=== PATIENT | female | born 1950 | race Caucasian/White ===

== ENCOUNTER 2021-11-01 07:53 | Emergency (ER) | payer OTHER, MEDICAID ==
[~2021-11-01] VITALS: Ht 162.6 cm; Wt 83.9 kg
[2021-11-01 08:04] VITALS: BP 147/82
[2021-11-01 12:14] LABS: BASOPHILS # (AUTO) 0.1 K/uL (0.00-0.22); EOSINOPHILS # (AUTO) 0.3 K/uL (0-0.4); HEMATOCRIT 38.5 % (36-48); HEMOGLOBIN 13.1 g/dL (12.0-16.0); LYMPHOCYTES # (AUTO) 1.6 K/uL (2.5-16.5); LYMPHOCYTES % (AUTO) 28.3 % (20.5-51.1); MEAN CORPUSCULAR HEMOGLOBIN 30 pg (27-31); MEAN CORPUSCULAR HGB CONC 34 g/dL (33-37); MEAN CORPUSCULAR VOLUME 88.1 fL (80-94); MONOCYTES # (AUTO) 0.4 K/uL (0.8-1.0); MONOCYTES % (AUTO) 7.4 % (1.7-9.3); NEUTROPHILS # (AUTO) 3.3 K/uL (1.8-7.7); NEUTROPHILS % (AUTO) 58.3 % (42.2-75.2); PLATELET COUNT (AUTO) 267 K/uL (140-450); RED BLOOD CELL COUNT(AUTO) 4.37 MIL/uL (4.20-5.40); RED CELL DISTRIBUTION WIDTH 13.8 % (11.6-13.7); WHITE BLOOD COUNT (AUTO) 5.6 K/uL (4.8-10.8)
[2021-11-01 12:29] LABS: ALBUMIN 3.4 g/dL (3.4-5.0); ANION GAP 11.7 (8-16); ASPARTATE AMINOTRANSFERASE 21 U/L (15-37); CARBON DIOXIDE 25.1 mmol/L (21-32); CHLORIDE 109 mmol/L (98-107); CREATININE 0.9 mg/dL (0.6-1.3); GLUCOSE 119 mg/dL (74-106); POTASSIUM 3.8 mmol/L (3.5-5.1); SODIUM SERUM 142 mmol/L (136-145); TOTAL BILIRUBIN 0.3 mg/dL (0.0-1.0); UREA NITROGEN, BLOOD 17 mg/dL (7-18)
--- NOTE | 2021-11-01 13:29 | NUR ---
Patient does not wish to proceed with medical care recommended by DR. BRAXTON. Patient given information related to possible complications, up to and including , which could occur as a result of leaving hospital at this time. Patient verbalizes understanding of risks involved leaving against medical advice. Patient has signed AMA form.
[2021-11-01 13:45] VITALS: BP 136/74
== END 2021-11-01 13:29 | disposition left against medical advice (07) ==
LOC: MED 07:53
DX: R07.89 Other chest pain (principal); R20.0 Anesthesia of skin; R20.2 Paresthesia of skin; I10 Essential (primary) hypertension; Z90.49 Acquired absence of other specified parts of digestive tract; Z98.890 Other specified postprocedural states
CPT/HCPCS: 36415; 71045; 80053; 83880; 84484; 85025; 93005; 99285

== ENCOUNTER 2022-04-19 03:10 | Inpatient (IN) | payer OTHER, MEDICAID ==
[~2022-04-19] VITALS: Ht 162.6 cm; Wt 90.7 kg
[2022-04-19 03:10] VITALS: BP 150/80
--- NOTE | 2022-04-19 03:11 | NUR ---
PT HARINI ALS. TAKEN TO BED 3
--- NOTE | 2022-04-19 03:12 | NUR ---
Dr. Stauffer examining patient.
[2022-04-19] MEDS ORDERED: AZITHROMYCIN 500 MG in DEXTROSE 5% 250 ML IV ONE (03:45)
[2022-04-19] MEDS ORDERED: methylPREDNISolone SS 125 MG in WATER STERILE 2 ML IV ONE (03:45)
--- NOTE | 2022-04-19 03:51 | NUR ---
72 Y.O. F BIBA FROM HOME WITH C/O SOB, WHEEZING, AN HOUR AGO , SHE WAS GIVEN BREATHING TREATMENT ENROUTE, NO CHEST PAIN, NOW SAO2 99%. LUNGS SOUND HAVE EXPIRATORY WHEEZES IN UPPER LOBES. VITALS WNL, A&OX4, SKIN INTACT, WALKS WITH CANE/WALKER AT HOME, AND GI/ NORMAL. HX: ASTHMA, HTN
[2022-04-19] MEDS ORDERED: AZITHROMYCIN 500 MG INJ VIAL IV ONE (03:53)
[2022-04-19] MEDS ORDERED: ALBUTEROL SULFATE/IPRATROPIU 3 ML SOL IH PRN ×2 (04:30→08:15)
--- NOTE | 2022-04-19 04:31 | NUR ---
MEGA COLLECTED AND WALKED TO LAB
[2022-04-19] MEDS ORDERED: ALBUTEROL SULFATE/IPRATROPIU 3 ML SOL IH ONE (04:43)
[2022-04-19] MEDS ORDERED: ONDANSETRON 4 MG/2 ML VIAL IVP ONE (04:45)
[2022-04-19 04:47] LABS: BASOPHILS # (AUTO) 0.1 K/uL (0.00-0.22); EOSINOPHILS # (AUTO) 0.8 K/uL (0-0.4); EOSINOPHILS % (AUTO) 10.9 % (0.0-4.0); HEMATOCRIT 36.9 % (36-48); HEMOGLOBIN 12.7 g/dL (12.0-16.0); LYMPHOCYTES # (AUTO) 2.3 K/uL (2.5-16.5); LYMPHOCYTES % (AUTO) 30.8 % (20.5-51.1); MEAN CORPUSCULAR HEMOGLOBIN 30 pg (27-31); MEAN CORPUSCULAR HGB CONC 34 g/dL (33-37); MEAN CORPUSCULAR VOLUME 85.9 fL (80-94); MONOCYTES # (AUTO) 0.7 K/uL (0.8-1.0); MONOCYTES % (AUTO) 9.9 % (1.7-9.3); NEUTROPHILS # (AUTO) 3.5 K/uL (1.8-7.7); NEUTROPHILS % (AUTO) 47.4 % (42.2-75.2); PLATELET COUNT (AUTO) 308 K/uL (140-450); RED BLOOD CELL COUNT(AUTO) 4.29 MIL/uL (4.20-5.40); RED CELL DISTRIBUTION WIDTH 13.6 % (11.6-13.7); WHITE BLOOD COUNT (AUTO) 7.3 K/uL (4.8-10.8)
[2022-04-19 04:48] LABS: ALBUMIN 3.3 g/dL (3.4-5.0); ANION GAP 13.3 (8-16); ASPARTATE AMINOTRANSFERASE 19 U/L (15-37); CARBON DIOXIDE 26.9 mmol/L (21-32); CHLORIDE 102 mmol/L (98-107); CREATININE 0.8 mg/dL (0.6-1.3); GLUCOSE 160 mg/dL (74-106); POTASSIUM 4.2 mmol/L (3.5-5.1); SODIUM SERUM 138 mmol/L (136-145); TOTAL BILIRUBIN 0.2 mg/dL (0.0-1.0); UREA NITROGEN, BLOOD 15 mg/dL (7-18)
[2022-04-19] MEDS ORDERED: ONDANSETRON 4 MG/2 ML VIAL ONE (04:48)
[2022-04-19] MEDS ORDERED: methylPREDNISolone SS 125 MG/2 ML VIAL ONE (05:07)
[2022-04-19] MEDS ORDERED: IBUP-44 PO (05:19)
[2022-04-19] MEDS ORDERED: ALBU0.0912 IH (05:19)
[2022-04-19] MEDS ORDERED: FLUT1BLS3 IH (05:19)
[2022-04-19] MEDS ORDERED: DIPH25TA53 PO (05:19)
[2022-04-19] MEDS ORDERED: ACET-2619 PO (05:19)
[2022-04-19] MEDS ORDERED: DORZ10SO22 OP (05:19)
[2022-04-19] MEDS ORDERED: ONDANSETRON 4 MG/2 ML VIAL IVP PRN (06:20)
[2022-04-19] MEDS ORDERED: ALBUTEROL SULFATE/IPRATROPIU 3 ML SOL IH SCH (07:00)
--- NOTE | 2022-04-19 07:17 | NUR ---
Pt report given to SHELTON LIANG. Transfer of care at this time.
--- NOTE | 2022-04-19 07:40 | NUR ---
Patient will be admitted to care of . Admited to TELE. Will go to room 121 A. Belongings list completed. Report to SHELTON RING.
[2022-04-19 07:42] VITALS: BP 116/51
--- NOTE | 2022-04-19 07:42 | NUR ---
PT BROUGHT IN BY CRISTHIAN FROM THE EMERGENCY ROOM IN STABLE CONDITION. ON 2L NC WITH CHEST RISING AND FALLING EVEN AND UNLABORED. PT ALERT AND ORIENTED X4. PT LUNG SOUNDS CLEAR BUT DIMINISHED IN BASES. BOWEL SOUNDS ACTIVE IN ALL 4 QUADRANTS, LAST BM NOTED ON 04/18/22. NO EDEMA NOTED. CAP REFILL LESS THAN 3. +2 PEDAL PULSES. SKIN INTACT. RIGHT AC 20 G, INTACT AND PATENT. ALL QUESTIONS ANSWERED. COMMUNICATION BOARD UPDATED. ALL SAFETY MEASURES IN PLACE, CALL LIGHT WITHIN REACH. WILL CONTINUE TO MONITOR.
--- NOTE | 2022-04-19 08:09 | NUR ---
RESP THERAPIST MELODY AT BEDSIDE ADMINISTERING BREATHING TREATMENT.
[2022-04-19] MEDS ORDERED: POTASSIUM CHLORIDE 10 MEQ TABER PO PRN (08:10)
[2022-04-19] MEDS ORDERED: guaiFENesin DM 200/20 MG-10 ML 10 ML UDC PO PRN (08:10)
[2022-04-19] MEDS ORDERED: HYDROcodone/APAP 7.5/325 MG 1 TAB PO PRN (08:10)
[2022-04-19] MEDS ORDERED: ONDANSETRON 4 MG/2 ML VIAL IM/IVP PRN (08:10)
[2022-04-19] MEDS ORDERED: DOCUSATE SODIUM 100 MG GELCAP PO PRN (08:10)
[2022-04-19] MEDS ORDERED: ZOLPIDEM 5 MG TAB PO PRN (08:10)
[2022-04-19] MEDS ORDERED: ACETAMINOPHEN 325 MG TAB PO PRN (08:10)
[2022-04-19 08:54] LABS: PROTHROMBIN TIME 9.4 secs (10.8-13.4)
--- NOTE | 2022-04-19 08:54 | NUR ---
KOREY MEDICATION ADMINISTERED PER MD ORDER, PT TOLERATED ADMINISTRATION. PT EDUCATION PROVIDED AND PT NODDED IN UNDERSTANDING. NEW FLUIDS STARTED ON RIGHT AC, PT EDUCATED ON NEEDING TO COLLECT A URINE SPECIMEN. PT VERBALIZED SHE WILL LET RN KNOW WHEN SHE USES THE RESTROOM. ALL SAFETY MEASURES IN PLACE, CALL LIGHT WITHIN REACH. WILL CONTINUE TO MONITOR.
[2022-04-19 08:56] LABS: AMYLASE 73 U/L (25-115); CHOL/HDL RATIO 5.8 (1-4.5); FREE T4 (FREE THYROXINE) 0.75 ng/dL (0.76-1.46); HDL CHOLESTEROL 41 mg/dL (40-60); LDL (CALC) 87 mg/dL (60-100); LIPASE 149 U/L (73-393); MAGNESIUM 1.6 mg/dL (1.8-2.4); PHOSPHORUS 3.3 mg/dL (2.5-4.9); THYROID STIMULATING HORMONE 1.81 uIU/mL (0.34-3.74); TRIGLYCERIDES 553 mg/dL (30-150)
[2022-04-19] MEDS: MAGNESIUM OXIDE 400 MG TAB PO SCH (09:00)
[2022-04-19] MEDS: PANTOPRAZOLE 40 MG TABEC PO SCH (09:06)
[2022-04-19] MEDS: NACL 0.9% 1,000 ML IV SCH (09:06)
--- NOTE | 2022-04-19 10:24 | NUR ---
PATIENT HAS BEEN SCREENED AND CATEGORIZED LOW NUTRITION RISK. PATIENT WILL BE SEEN WITHIN 7 DAYS OF ADMISSION. 04/19/22-04/25/[address]
[2022-04-19 12:00] VITALS: BP 115/51
--- NOTE | 2022-04-19 12:05 | NUR ---
HIGH PRESSURE ALARM GOING OFF ON IV IN RIGHT AC, PT EDUCATED ON KEEPING ARM STRAIGHT. PT STATED SHE WOULD LIKE AN IV IN A DIFFERENT LOCATION. WILL ATTEMPT INSERTING NEW IV
[2022-04-19] MEDS: methylPREDNISolone SS 40 MG/ML VIAL IVP SCH ×2 (12:08→20:24)
--- NOTE | 2022-04-19 12:54 | NUR ---
NEW IV STARTED IN LEFT HAND 22G, PATENT AND INTACT. RUNNING NS @ 60. KOREY MEDICATION AND DAILY DOSE OF MAG ADMINISTERED PER MD ORDER, PT TOLERATED ADMINISTRATION. ALL SAFETY MEASURES IN PLACE, CALL LIGHT WITHIN REACH. WILL CONTINUE TO MONITOR.
--- NOTE | 2022-04-19 13:30 | NUR ---
UA AND DRUG SCREEN COLLECTED AND SENT TO THE LAB. EDUCATED ON THE NEED TO COLLECT SPUTUM CULTURE, PT VERBALIZED SHE HAS A DRY COUGH BUT WILL TRY TO COLLECT SPUTUM CULTURE.
[2022-04-19] MEDS: ALBUTEROL SULFATE/IPRATROPIU 3 ML SOL IH SCH ×2 (13:33→19:00)
--- NOTE | 2022-04-19 13:33 | NUR ---
POST HHN THERAPY INCENTIVE SPIROMETRY (IS) APPLIED TOLERATED IS THERAPY WELL WITHOUT COMPLICATIONS ENCOURAGED PATIENT TO USE IS EVERY 1-2 OURS WHILE AWAKE
[2022-04-19] MEDS ORDERED: LISI10TA30 PO (13:53)
[2022-04-19] MEDS ORDERED: OMEP40EC23 PO (13:53)
[2022-04-19] MEDS ORDERED: ATOR40TA40 PO (13:53)
[2022-04-19 14:14] LABS: APPEARANCE,URINE CLEAR (CLEAR); BILIRUBIN,URINE NEGATIVE (NEGATIVE); BLOOD, URINE NEGATIVE (NEGATIVE); COLOR,URINE YELLOW (YELLOW); LEUKOCYTE ESTERASE ,URINE NEGATIVE (NEGATIVE); NITRITE, URINE NEGATIVE (NEGATIVE); UGLUCOSE 1+ (NEGATIVE)
[2022-04-19 14:31] LABS: BARBITURATE, URINE NEGATIVE ng/ml (NEG <=200); BENZODIAZEPINE, URINE NEGATIVE ng/mL (NEG <=200); CANNABINOID, URINE NEGATIVE ng/mL (NEG <=50); COCAINE, URINE NEGATIVE ng/mL (NEG <=300); OPIATE, URINE NEGATIVE ng/mL (NEG <=2000); PHENCYCLIDINE SCREEN,URINE NEGATIVE ng/mL (NEG <=25)
--- NOTE | 2022-04-19 14:41 | NUR ---
PT CALLED REPORTING IV LEAKING. UPON ASSESSMENT, IV INFILTRATED. IV REMOVED. WILL ATTEMPT INSERTING NEW ONE. ALL SAFETY MEASURES IN PLACE, CALL LIGHT WITHIN REACH. WILL CONTINUE TO MONITOR.
[2022-04-19 14:49] LABS: RBC,URINE 0-5 /HPF (0-5); WBC,URINE 0 /HPF (0-5)
[2022-04-19 16:00] VITALS: BP 116/61
--- NOTE | 2022-04-19 16:25 | NUR ---
DC PLANNING: THE PATIENT PRESENTED FROM HOME WITH C/O SOB. H/O COPD, ASTHMA AND HTN. PATIENT REQUIRED 5L O2 WITH AEROSOL MIST, RR 22. GIVEN SOLU-MEDROL AND ZITHROMAX IV, CXR WNL'S. ORDER FOR PULMONOLOGY CONSULT, ROCEPHIN, SOLU MEDROL, DUO NEBS AND IVF'S. CM SPOKE WITH THE PATIENT AT BEDSIDE AND CONFIRMED HER ADDRESS AND PHONE NUMBER. SHE LIVES WITH HER SON NATALIIA IN A MOBILE HOME AND AMBULATES AROUND THE HOUSE AND OUTSIDE. AMBULATION IS LIMITED BECAUSE OF SOB, THE PATIENT USES A CANE OR FWW TO AMBULATE, ALSO HAS A SCOOTER, POWER WC AND DUO NEB MACHINE. SHE IS COMPLIANT WITH COPD MEDS OF TRILOGY AND A RESCUE INHALER AND HAD A SLEEP STUDY IN JANUARY. BIPAP HAS BEEN ORDERED FOR HOME USE BY HER ROLL ICER, THE PATIENT SEES HER PMD DR KEENAN ANNUALLY. SHE USES HER SCOOTER TO RUN ERRANDS AND SOMETIMES DRIVES. NO H/O HOME HEALTH OR SNF PLACEMENT. DC PLAN IS FOR THE PATIENT TO RETURN HOME WHEN CLINICALLY STABLE, CM WILL FOLLOW.
--- NOTE | 2022-04-19 16:39 | NUR ---
ATTEMPTED TO INSERT NEW IV, UNSUCCESSFUL AFTER 2 ATTEMPTS. PT DISCUSSING AMA, EDUCATED PT ON IMPORTANCE OF BREATHING TREATMENT. PT STATED "DO WHATEVER YOU GOT TO DO". CALLED DOWN TO ED FOR ASSISTANCE WITH INSERTING AN IV. ALL SAFETY MEASURES IN PLACE, CALL LIGHT WITHIN REACH. WILL CONTINUE TO MONITOR.
--- NOTE | 2022-04-19 17:52 | NUR ---
BESSY LOBATO RN INSERTED IV TO RIGHT AC 18 G, IV FLUIDS RUNNING AT 69CC. PT STABLE. ALL SAFETY MEASURES IN PLACE, CALL LIGHT WITHIN REACH WILL CONTINUE TO MONITOR.
--- NOTE | 2022-04-19 18:00 | NUR ---
PRN COUGH MEDICATION ADMINISTERED PER MD ORDER, PT TOLERATED ADMINISTRATION. PT IV RESECURED, EDUCATED PT ON IMPORTANCE OF NOT PULLING ON IV LINE TO PREVENT NEEDING A NEW IV. PT VERBALIZED UNDERSTANDING. ALL SAFETY MEASURES IN PLACE, CALL LIGHT WITHIN REACH. WILL CONTINUE TO MONITOR.
--- NOTE | 2022-04-19 18:48 | NUR ---
PT REMAINED STABLE THROUGHOUT SHIFT WITH NO ACUTE S/S OF DISTRESS. ALL NEEDS HAVE BEEN MET THROUGHOUT SHIFT. PT WILL BE ENDORSED TO CT MANAGER NURSE FOR CONTINUITY OF CARE AT 1900.
--- NOTE | 2022-04-19 19:20 | NUR ---
RECEIVED BEDSIDE REPORT FROM DAY SHIFT RN FOR CONTINUITY OF CARE. PT IS AWAKE IN BED WITH SON BY BEDSIDE. PT IS AAOX4. PT IS ON NC 2L. PT HAS RIGHT AC 18 GAUGE WITH NS 60 ML/HR. PT IS NOT IN ANY ACUTE DISTRESS. CALL LIGHT WITHIN REACH. ALL SAFETY MEASURES TAKEN. WILL CONTINUE TO MONITOR THE PT.
[2022-04-19 20:00] VITALS: BP 119/54
--- NOTE | 2022-04-19 20:35 | NUR ---
ALL DUE MEDS GIVEN. NO ADVERSE REACTION NOTED. PT ASKED FOR RESPIRATORY THERAPIST AND BREATHING TREATMENT. TALKED TO RT AND EXPLAIN THE PT CONCERNS. NO OTHER COMPLAINS FROM THE PT. PT DENIES PAIN. IVF RUNNING PER MD ORDER. CALL LIGHT WITHIN REACH. ALL SAFETY MEASURES TAKEN. WILL CONTINUE TO MONITOR THE PT.
--- NOTE | 2022-04-19 23:24 | NUR ---
PT IS AWAKE IN BED. PT STATES SHE IS DOING WELL. PT DENIES ANY PAIN. PT STILL ON NC 2L. IVF RUNNING PER MD ORDER. CALL LIGHT WITHIN REACH. ALL SAFETY MEASURES TAKEN. WILL CONTINUE TO MONITOR THE PT.
[2022-04-20] VITALS: BP 101/41
[2022-04-20] MEDS: NACL 0.9% 1,000 ML IV SCH ×2 (00:50→17:35)
[2022-04-20 04:00] VITALS: BP 112/51
[2022-04-20] MEDS: methylPREDNISolone SS 40 MG/ML VIAL IVP SCH ×3 (05:20→21:00)
--- NOTE | 2022-04-20 05:30 | NUR ---
SOLU-MEDROL GIVEN PER MD ORDER. NO ADVERSE EFFECT NOTED. PT IS DOING WELL AND HAS NO COMPLAINS. DENIES ANY PAIN. IVF RUNNING PER MD ORDER. CALL LIGHT WITHIN REACH. ALL SAFETY MEASURES TAKEN. WILL CONTINUE TO MONITOR THE PT.
[2022-04-20 05:47] LABS: BASOPHILS % (AUTO) 0.1 % (0.0-2.0); HEMATOCRIT 37.5 % (36-48); HEMOGLOBIN 12.4 g/dL (12.0-16.0); LYMPHOCYTES # (AUTO) 1.3 K/uL (2.5-16.5); LYMPHOCYTES % (AUTO) 7.4 % (20.5-51.1); MEAN CORPUSCULAR HEMOGLOBIN 29 pg (27-31); MEAN CORPUSCULAR HGB CONC 33 g/dL (33-37); MEAN CORPUSCULAR VOLUME 86.4 fL (80-94); MONOCYTES # (AUTO) 0.6 K/uL (0.8-1.0); MONOCYTES % (AUTO) 3.4 % (1.7-9.3); NEUTROPHILS # (AUTO) 16.2 K/uL (1.8-7.7); NEUTROPHILS % (AUTO) 89.1 % (42.2-75.2); PLATELET COUNT (AUTO) 356 K/uL (140-450); RED BLOOD CELL COUNT(AUTO) 4.34 MIL/uL (4.20-5.40); RED CELL DISTRIBUTION WIDTH 13.6 % (11.6-13.7); WHITE BLOOD COUNT (AUTO) 18.1 K/uL (4.8-10.8)
[2022-04-20 06:28] LABS: ANION GAP 18.3 (8-16); CARBON DIOXIDE 22.2 mmol/L (21-32); CHLORIDE 99 mmol/L (98-107); CREATININE 1.1 mg/dL (0.6-1.3); POTASSIUM 4.5 mmol/L (3.5-5.1); SODIUM SERUM 135 mmol/L (136-145); UREA NITROGEN, BLOOD 24 mg/dL (7-18)
[2022-04-20] MEDS: ALBUTEROL SULFATE/IPRATROPIU 3 ML SOL IH SCH ×3 (07:16→20:29)
[2022-04-20 07:17] LABS: GLUCOSE 207 mg/dL (74-106)
--- NOTE | 2022-04-20 07:25 | NUR ---
RECEIVED BEDSIDE REPORT FROM PAINT ROLLER COVERMAKER NURSE FOR CONTINUITY OF CARE. PT IS AWAKE AND ALERT. A&OX4. ON 2L O2 NC WITH BREATHING UNLABORED. AMBULATORY INDEPENDENTLY. SKIN IS WARM, DRY, AND INTACT. IV IS IN PLACE IN THE RIGHT AC 18 GAUGE INFUSING FLUIDS ORDERED. PT IS STABLE. PLAN OF CARE DISCUSSED.
--- NOTE | 2022-04-20 07:26 | NUR ---
ENDORSED PT TO DAY SHIFT RN FOR CONTINUITY OF CARE. PT IS STABLE.
--- NOTE | 2022-04-20 07:30 | NUR ---
RECEIVED REPORT FROM [facility] NURSE FOR CONTINUITY OF CARE. PATIENT WAS SITTING UP IN BED. IV IS RAC 18G WITH NORMAL SALINE RUNNING 60ML/HR. PATIENT IS A&OX4, SKIN IS INTACT. RESPIRATIONS ARE NORMAL WITH SYMMETRICAL RISE AND FALL OF CHEST. PATIENT IS AMBULATORY AND HAS SLIGHT PRODUCTIVE COUGH (PATIENT IS TRYING TO PROVIDE SPUTUM CULTURE). PATIENT IS TALKATIVE AND APPEARS TO HAVE AN POSITIVE DEMEANOR. WILL CONTINUE TO MONITOR PATIENT.
[2022-04-20 08:00] VITALS: BP 146/60
[2022-04-20 08:08] LABS: T4 (THYROXINE) 6.9 ug/dL (4.5-12.0)
[2022-04-20] MEDS: PANTOPRAZOLE 40 MG TABEC PO SCH (08:35)
[2022-04-20] MEDS: MAGNESIUM OXIDE 400 MG TAB PO SCH (08:36)
[2022-04-20 12:00] VITALS: BP 115/46
--- NOTE | 2022-04-20 12:06 | NUR ---
RECEIVED CALL FROM DR. VILLANUEVA. PER DOCTOR DO NOT DISCHARGE PT TILL TOMORROW. WBC ELEVATED TODAY, WAITING TO SEE WBC TOMORROW.
--- NOTE | 2022-04-20 14:00 | NUR ---
PATIENT'S IV WAS LOOSE, REDRESSED IV. PATIENT INQUIRED ABOUT DOG COMING INTO HOSPITAL, AND WAS INFORMED THAT HER DOG COULD NOT COME INTO THE HOSPITAL. PATIENT IS SITTING UP AND WANDERING AROUND THE ROOM AND HALLWAY FROM TIME TO TIME. PATIENT IS A&OX4, BREATHING IS NORMAL WITH SYMMETRICAL RISE AND FALL OF CHEST. WILL CONTINUE TO MONITOR PATIENT.
[2022-04-20 16:00] VITALS: BP 120/54
--- NOTE | 2022-04-20 16:50 | NUR ---
ENDORSED PT TO KAE RUBIN, FOR CONTINUITY OF CARE. PT IS STABLE AT THIS TIME.
--- NOTE | 2022-04-20 16:51 | NUR ---
ASSUMED CARE FOR THIS PT.
--- NOTE | 2022-04-20 17:02 | NUR ---
WENT TO CHECK ON PT. PT SITTING AT BEDSIDE WITH FAMILY MEMBER. NO S/S OF PAIN OR DISCOMFORT. WILL CONTINUE TO MONITOR.
--- NOTE | 2022-04-20 19:10 | NUR ---
ENDORSED PT TO OFFICE MACHINE SERVICER NURSE FOR CONTINUITY OF CARE. PT IS STABLE.
--- NOTE | 2022-04-20 19:20 | NUR ---
RECEIVED BEDSIDE REPORT FROM DAY SHIFT RN FOR CONTINUITY OF CARE. PT IS AWAKE WITH FAMILY BY BEDSIDE. PT IS AAOX4 ON RA. PT IS NOT IN ANY ACUTE RESPIRATORY DISTRESS. PT WANTED TO BE CONNECTED BACK TO IV WHICH WAS DONE. PT HAS RIGHT AC 18 GAUGE WITH NS 60 ML/HR. PT IS ABLE TO AMBULATE WELL. GAIT STEADY. NO OTHER COMPLAINS FROM THE PT. PT DENIES ANY PAIN. COMMUNICATION BOARD UPDATED. WILL CONTINUE TO MONITOR THE PT.
[2022-04-20 20:00] VITALS: BP 133/71
--- NOTE | 2022-04-20 21:41 | NUR ---
PT REFUSED HER 2100 MEDICATIONS.
--- NOTE | 2022-04-20 23:05 | NUR ---
PT IS SLEEPING IN BED COMFORTABLY. BREATHING EVEN AND UNLABORED. VISIBLE RISE CHEST AND FALL. PT IS NOT IN ANY ACUTE DISTRESS. COMMUNICATION BOARD UPDATED. IVF RUNNING PER MD ORDER. CALL LIGHT WITHIN REACH. ALL SAFETY MEASURES TAKEN. WILL CONTINUE TO MONITOR THE PT.
[2022-04-21] VITALS: BP 112/64
--- NOTE | 2022-04-21 00:41 | NUR ---
PT IS AWAKE IN BED PLAYING WITH HER IV AND IT ALMOST CAME OFF. EDUCATED PT ON THE REASONS TO TAKE CARE OF IV. PT VERBALIZE UNDERSTANDING. NO COMPLAINS. PT DENIES PAIN. WILL CONTINUE TO MONITOR THE PT.
[2022-04-21 04:00] VITALS: BP 147/81
--- NOTE | 2022-04-21 04:46 | NUR ---
PT WAS HELPED TO THE RESTROOM. PT AMBULATED WELL. PT HAS NO COMPLAINS AT THIS TIME. DENIES ANY PAIN. IVF STILL RUNNING PER MD ORDER. CALL LIGHT WITHIN REACH. ALL SAFETY MEASURES TAKEN. WILL CONTINUE TO MONITOR THE PT.
[2022-04-21] MEDS: methylPREDNISolone SS 40 MG/ML VIAL IVP SCH ×2 (05:08→12:24)
[2022-04-21 05:42] LABS: BASOPHILS % (AUTO) 0.1 % (0.0-2.0); HEMATOCRIT 35.9 % (36-48); HEMOGLOBIN 11.8 g/dL (12.0-16.0); LYMPHOCYTES # (AUTO) 1.4 K/uL (2.5-16.5); LYMPHOCYTES % (AUTO) 8.8 % (20.5-51.1); MEAN CORPUSCULAR HEMOGLOBIN 29 pg (27-31); MEAN CORPUSCULAR HGB CONC 33 g/dL (33-37); MEAN CORPUSCULAR VOLUME 86.8 fL (80-94); MONOCYTES % (AUTO) 6.4 % (1.7-9.3); NEUTROPHILS # (AUTO) 13.3 K/uL (1.8-7.7); NEUTROPHILS % (AUTO) 84.7 % (42.2-75.2); PLATELET COUNT (AUTO) 309 K/uL (140-450); RED BLOOD CELL COUNT(AUTO) 4.13 MIL/uL (4.20-5.40); RED CELL DISTRIBUTION WIDTH 13.9 % (11.6-13.7); WHITE BLOOD COUNT (AUTO) 15.7 K/uL (4.8-10.8)
[2022-04-21 05:59] LABS: ANION GAP 13.7 (8-16); CARBON DIOXIDE 24.9 mmol/L (21-32); CHLORIDE 102 mmol/L (98-107); GLUCOSE 162 mg/dL (74-106); POTASSIUM 4.6 mmol/L (3.5-5.1); SODIUM SERUM 136 mmol/L (136-145); UREA NITROGEN, BLOOD 33 mg/dL (7-18)
[2022-04-21] MEDS: ALBUTEROL SULFATE/IPRATROPIU 3 ML SOL IH SCH (06:53)
--- NOTE | 2022-04-21 07:15 | NUR ---
RECEIVED BEDSIDE REPORT FROM MEAT CUTTING BLOCK REPAIRER NURSE FOR CONTINUITY OF CARE. PT IS AWAKE AND ALERT. A&OX4. ON RA WITH BREATHING UNLABORED. AMBULATORY INDEPENDENTLY. SKIN IS WARM, DRY, AND INTACT. IV IS INTACT AND IN PLACE. PT IS STABLE. PLAN OF CARE DISCUSSED.
--- NOTE | 2022-04-21 07:16 | NUR ---
ENDORSED PT TO DAY SHIFT RN FOR CONTINUITY OF CARE. PT IS STABLE.
[2022-04-21 08:00] VITALS: BP 118/58
[2022-04-21] MEDS: MAGNESIUM OXIDE 400 MG TAB PO SCH (08:49)
[2022-04-21] MEDS: PANTOPRAZOLE 40 MG TABEC PO SCH (08:49)
--- NOTE | 2022-04-21 10:00 | NUR ---
PT IS AWAKE AND ALERT. ANSWERED QUESTIONS APPROPRIATELY. ASKED TO DISCONNECT IV AND SHE AMBULATED TO THE RESTROOM. PT IS STABLE. WILL MONITOR.
[2022-04-21] MEDS: NACL 0.9% 1,000 ML IV SCH (10:11)
[2022-04-21] MEDS ORDERED: PRED10TA5 PO (10:36)
[2022-04-21 10:56] VITALS: BP 118/58
--- NOTE | 2022-04-21 11:30 | NUR ---
DISCHARGE INSTRUCTIONS WERE PROVIDED AND PT VERBALIZED UNDERSTANDING. PT IS STABLE. BREATHING IS UNLABORED ON RA. IV WAS REMOVED AND BLEEDING CONTROLLED. ID BAND REMOVED. PT STATES HER GRANDSON WILL PICK HER UP WHEN SHES READY. SHE IS WAITING FOR DR. VILLANUEVA TO COME IN TO ASK HER A FEW QUESTIONS BEFORE DISCHARGE. PT CHANGED INTO OWN CLOTHES.
--- NOTE | 2022-04-21 11:59 | NUR ---
PT STATES SHE HAS SOB WHEN AMBULATING AND IS REQUESTING O2 FOR HOME. INFORMATION WRITER AT BESIDE PAT, ASKED RT TO WORK WITH PT. RTS AT BEDSIDE, AT REST PT'S O2 SAT IS 96%. PT AMBULATED AROUND THE UNIT FOR 5 LAPS AND O2 SAT WAS CHECKED. O2 SAT AT THE LOWEST WAS 92%. NO SOB NOTED OR LABORED BREATHING. INFORMED ANITA, INFORMATION WRITER.
[2022-04-21 12:00] VITALS: BP 152/79
--- NOTE | 2022-04-21 13:48 | NUR ---
PT JUST PICKED UP FROM FAMILY MEMBER. AMBULATED OUTSIDE OF THE HOSPITAL WITH FAMILY MEMBER AND CANE THAT THEY BROUGHT FROM HOME. PT IS STABLE. NO DISTRESS NOTED. PT IS DISCHARGED FROM THE HOSPITAL.
== END 2022-04-21 13:50 | disposition home or self-care (01) | DRG 189 ==
LOC: MED 03:10 → MTU 04:37
PROVIDERS: ADMIT Hospitalist; ATTEND Hospitalist
DX: J96.01 Acute respiratory failure with hypoxia (principal); J44.1 Chronic obstructive pulmonary disease with (acute) exacerbation; E44.1 Mild protein-calorie malnutrition; E83.42 Hypomagnesemia; I10 Essential (primary) hypertension; E78.2 Mixed hyperlipidemia; Z20.822 Contact with and (suspected) exposure to COVID-19; E66.9 Obesity, unspecified; E05.90 Thyrotoxicosis, unspecified without thyrotoxic crisis or storm; Z87.891 Personal history of nicotine dependence; Z90.710 Acquired absence of both cervix and uterus; Z68.34 Body mass index [BMI] 34.0-34.9, adult
CPT/HCPCS: 36415; 71045; 80048; 80053; 80305; 81001; 82150; 83036; 83690; 83735; 83880; 84100; 84436; 84439; 84443; 84479; 84484; 85025; 85610; 85730; 87040; 87070; 87081; 87205; 93005; 94010; 94617; 94640; 96365; 96375; 97116; 99291; J0456; J0696; J2405; J2920; J2930; J7060; Q0092

== ENCOUNTER 2022-05-11 12:24 | Emergency (ER) | payer OTHER, MEDICAID ==
[~2022-05-11] VITALS: Ht 165.1 cm; Wt 97.1 kg
[~2022-05-11 12:24] MED LIST: ACET-2619 PO; ALBU0.0912 IH; ATOR40TA40 PO; DIPH25TA53 PO; DORZ10SO22 OP; FLUT1BLS3 IH; IBUP-44 PO; LISI10TA30 PO; OMEP40EC23 PO; PRED10TA5 PO
--- NOTE | 2022-05-11 12:30 | NUR ---
HARINI VARELA TAKEN TO BED #3
[2022-05-11 12:35] VITALS: BP 134/47
--- NOTE | 2022-05-11 12:40 | NUR ---
biba from home c/o gen weakness and sob after waking up from a nap. pt hx copd, asthma, htn. usually on home o2 @ home. o2 @ 96% on 2L, denies cp, aaox4. on multi care technician. bloo drawn.
[2022-05-11] MEDS ORDERED: ALBUTEROL SULFATE/IPRATROPIU 3 ML SOL IH ONE (12:55)
--- NOTE | 2022-05-11 13:06 | NUR ---
ekg done at bedside. rt at bedside for br tx
--- NOTE | 2022-05-11 13:10 | NUR ---
[facility]
[2022-05-11 13:51] LABS: BASOPHILS % (AUTO) 0.6 % (0.0-2.0); EOSINOPHILS # (AUTO) 0.6 K/uL (0-0.4); EOSINOPHILS % (AUTO) 11.3 % (0.0-4.0); HEMATOCRIT 35.1 % (36-48); HEMOGLOBIN 11.9 g/dL (12.0-16.0); LYMPHOCYTES # (AUTO) 0.6 K/uL (2.5-16.5); LYMPHOCYTES % (AUTO) 10.6 % (20.5-51.1); MEAN CORPUSCULAR HEMOGLOBIN 29 pg (27-31); MEAN CORPUSCULAR HGB CONC 34 g/dL (33-37); MEAN CORPUSCULAR VOLUME 85.7 fL (80-94); MONOCYTES # (AUTO) 0.4 K/uL (0.8-1.0); MONOCYTES % (AUTO) 7.3 % (1.7-9.3); NEUTROPHILS % (AUTO) 70.2 % (42.2-75.2); PLATELET COUNT (AUTO) 255 K/uL (140-450); RED BLOOD CELL COUNT(AUTO) 4.09 MIL/uL (4.20-5.40); RED CELL DISTRIBUTION WIDTH 14.1 % (11.6-13.7); WHITE BLOOD COUNT (AUTO) 5.7 K/uL (4.8-10.8)
--- NOTE | 2022-05-11 13:51 | NUR ---
patient placed in room air and o2 stable. granddaughter at bedside
[2022-05-11 14:01] LABS: ALBUMIN 2.9 g/dL (3.4-5.0); ANION GAP 13.6 (8-16); ASPARTATE AMINOTRANSFERASE 17 U/L (15-37); CARBON DIOXIDE 26.1 mmol/L (21-32); CHLORIDE 103 mmol/L (98-107); CREATININE 0.9 mg/dL (0.6-1.3); GLUCOSE 147 mg/dL (74-106); POTASSIUM 3.7 mmol/L (3.5-5.1); SODIUM SERUM 139 mmol/L (136-145); TOTAL BILIRUBIN 0.5 mg/dL (0.0-1.0); UREA NITROGEN, BLOOD 14 mg/dL (7-18)
[2022-05-11 14:06] LABS: PROTHROMBIN TIME 9.9 secs (10.8-13.4)
--- NOTE | 2022-05-11 15:18 | NUR ---
RT AT BEDSIDE FOR CPAP INSTRUCTIONS
[2022-05-11] MEDS ORDERED: PRED20TA5 PO (15:21)
[2022-05-11 15:26] VITALS: BP 131/61
== END 2022-05-11 15:27 | disposition home or self-care (01) ==
LOC: MED 12:24
DX: R06.02 Shortness of breath (principal); R53.1 Weakness; J44.9 Chronic obstructive pulmonary disease, unspecified; I10 Essential (primary) hypertension; Z88.5 Allergy status to narcotic agent; Z88.8 Allergy status to other drugs, medicaments and biological substances; Z79.899 Other long term (current) drug therapy
CPT/HCPCS: 36415; 71045; 80053; 81002; 83880; 84484; 85025; 85610; 85730; 93005; 94640; 99285; Q0092